=== PATIENT | female | born 1945 | race Caucasian/White ===

== ENCOUNTER 2016-06-25 17:01 | Observation (INO) | payer OTHER ==
[~2016-06-25] VITALS: Ht 177.8 cm; Wt 138.6 kg
[~2016-06-25 17:01] MED LIST: AMBIEN10 MG PO; AMBIEN5 M1 PO; ASPIRIN325 MG PO; BACTRIM,SEPT1 TABLET PO; BUPROPION HCL150 M2 PO; CELEBREX200 MG PO; COUMADIN10 MG PO; COUMADIN5 MG PO; COUMADIN7.5 MG PO; DIOVAN40 MG PO; DITROPAN XL10 MG PO; Ecotrin PO; FLUOXETINE HCL40 MG PO; Feosol PO; GLIPIZIDE ER2.5 M1 PO; GLIPIZIDE XL10 MG PO; GLUCOTROL XL10 MG PO; Glucotrol PO; IBUPROFEN800 MG PO; KEFLEX500 MG PO; LAMICTAL200 MG PO; LEXAPRO10 MG PO; LOPRESSOR25 MG PO; LOPRESSOR50 MG PO; LYRICA75 MG PO; METFORMIN HCL1000 MG PO; METOPROLOL SUC100 MG PO; MOTRIN800 MG PO; NIZORAL SHAMPO120 ML TP; NORCO 5/3251 TABLET PO; PRAVACHOL20 MG PO; PREVACID30 MG PO; PROAIR HFA8.5 GM IH; PROTONIX40 MG PO; PROZAC40 MG PO; SENOKOT S,PE1 TABLET PO; TOPAMAX25 MG PO; TOPAMAX50 MG PO; TYLENOL WITH C1 EACH PO; VESICARE5 MG PO; VICODIN 5-3001 EACH PO; VICODIN,LORT1 TABLET PO; Vicodin,Norco 5/325 PO; Vitamin B-12 PO; Vitamin D PO; WARFARIN SODIUM1 MG PO; WELLBUTRIN SR150 MG PO; WELLBUTRIN100 MG PO; ZANTAC150 MG PO; ZOFRAN4 MG PO; ZOLPIDEM TARTRA10 MG PO; Zantac,Taladine PO
[2016-06-25 17:59] LABS: HEMATOCRIT 39.7 % (36.0-46.0); MCH 28.2 PG (29.0-34.0); MCHC 31.5 G/DL (30.0-36.0); MCV 89.4 FL (83-99); MEAN PLAT.VOLUME 11.4 uM^3 (9.5-12.4); PLATELET COUNT 144 K/uL (156-360); RBC DIS.WIDTH-CV 14.1 % (11.8-14.6); RBC DIS.WIDTH-SD 46.3 % (39-53); RED BLOOD COUNT 4.44 M/uL (3.80-5.20); WHITE BLOOD COUNT 4.4 K/uL (4.1-10.2)
[2016-06-25 18:09] LABS: CHLORIDE 111 mEq/L (99-109); SODIUM 143 mEq/L (136-147)
[2016-06-25 18:10] LABS: GLUCOSE 85 mg/dL (70-99)
[2016-06-25 18:12] LABS: ANION GAP 7 MEQ/L (2-14)
[2016-06-25 18:14] LABS: GFR ESTIMATE (CALCULATED) 58 mL/min/
[2016-06-25 18:15] LABS: UREA NITROGEN (BUN) 19 mg/dL (9-23)
[2016-06-25 18:22] LABS: TROP-I INTERPRETATION NEGATIVE; TROPONIN-I < 0.01 ng/mL (0.0-0.30)
[2016-06-25] MEDS ORDERED: ADVAIR 500/501 DISK IH (19:18)
[2016-06-25] MEDS ORDERED: ABILIFY5 MG PO (19:19)
[2016-06-25] MEDS ORDERED: WELLBUTRIN SR150 MG PO (19:20)
[2016-06-25] MEDS ORDERED: LOTRISONE15 GM TP (19:21)
[2016-06-25] MEDS ORDERED: ELIQUIS5 MG PO (19:21)
[2016-06-25] MEDS ORDERED: FUROSEMIDE20 MG PO (19:22)
[2016-06-25] MEDS ORDERED: LYRICA150 MG PO (19:23)
[2016-06-25] MEDS ORDERED: MECLIZINE HCL25 MG PO (19:24)
[2016-06-25] MEDS ORDERED: NYSTATIN-TRIAMC15 GM TP (19:25)
[2016-06-25] MEDS ORDERED: PRAVACHOL80 MG PO (19:26)
[2016-06-25 21:15] VITALS: BP 131/61
[2016-06-26] VITALS: BP 130/68
[2016-06-26 01:13] LABS: TROP-I INTERPRETATION NEGATIVE; TROPONIN-I < 0.01 ng/mL (0.0-0.30)
[2016-06-26 03:58] VITALS: BP 112/60
[2016-06-26 08:09] LABS: POINT-OF-CARE METER ID UU14162513
[2016-06-26 08:22] VITALS: BP 132/70
[2016-06-26 08:48] LABS: TROP-I INTERPRETATION NEGATIVE; TROPONIN-I 0.01 ng/mL (0.0-0.30)
[2016-06-26 09:47] LABS: D-DIMER ELISA 0.21 mg/L FEU (< 0.57)
[2016-06-26] MEDS ORDERED: NITROSTAT0.4 MG SL (10:24)
== END 2016-06-26 11:53 | disposition home or self-care (01) ==
LOC: EME 17:01 → EDOF 20:25 → 5WEST 20:25 → EDOF 20:25 → 5WEST 21:01
PROVIDERS: Emergency Medicine; Family Medicine; Hospitalist; Nurse Practitioner Adult Health
DX: R07.89 Other chest pain (principal); I48.91 Unspecified atrial fibrillation; I10 Essential (primary) hypertension; E11.9 Type 2 diabetes mellitus without complications; G47.33 Obstructive sleep apnea (adult) (pediatric); F31.9 Bipolar disorder, unspecified; Z86.73 Personal history of transient ischemic attack (TIA), and cerebral infarction without residual deficits
CPT/HCPCS: 71020; 80048; 82948; 83880; 84484; 85027; 85379; 93005; 94640; 94640 76; 99202; 99281; 99284; G0378

== ENCOUNTER 2016-07-02 12:16 | Emergency (ER) | payer OTHER ==
[~2016-07-02] VITALS: Ht 175.3 cm; Wt 138.6 kg
[~2016-07-02 12:16] MED LIST changes: +ABILIFY5 MG PO; +ADVAIR 500/501 DISK IH; +ELIQUIS5 MG PO; +FUROSEMIDE20 MG PO; +LOTRISONE15 GM TP; +LYRICA150 MG PO; +MECLIZINE HCL25 MG PO; +NITROSTAT0.4 MG SL; +NYSTATIN-TRIAMC15 GM TP; +PRAVACHOL80 MG PO
[2016-07-02 13:53] VITALS: BP 154/67
== END 2016-07-02 13:53 | disposition home or self-care (01) ==
LOC: EME 12:16
DX: S80.02XA Contusion of left knee, initial encounter (principal); W18.39XA Other fall on same level, initial encounter; E11.9 Type 2 diabetes mellitus without complications; Z96.653 Presence of artificial knee joint, bilateral
CPT/HCPCS: 73564; 99281; 99284

== ENCOUNTER 2016-12-31 12:04 | Inpatient (IN) | payer OTHER ==
[~2016-12-31] VITALS: Ht 177.8 cm; Wt 140.3 kg
[2016-12-31 12:39] LABS: HEMATOCRIT 39.4 % (36.0-46.0); MCH 28.2 PG (29.0-34.0); MCHC 31.5 G/DL (30.0-36.0); MCV 89.7 FL (83-99); MEAN PLAT.VOLUME 10.9 uM^3 (9.5-12.4); PLATELET COUNT 179 K/uL (156-360); RBC DIS.WIDTH-SD 45.8 % (39-53); RED BLOOD COUNT 4.39 M/uL (3.80-5.20); WHITE BLOOD COUNT 5.8 K/uL (4.1-10.2)
[2016-12-31 12:50] LABS: CHLORIDE 108 mEq/L (99-109); POTASSIUM 4.5 mEq/L (3.7-5.4); SODIUM 141 mEq/L (136-147)
[2016-12-31 12:52] LABS: GLUCOSE 93 mg/dL (70-99)
[2016-12-31 12:53] LABS: ANION GAP 9 MEQ/L (2-14)
[2016-12-31 12:55] LABS: GFR ESTIMATE (CALCULATED) 52 mL/min/; SERUM ETHYL ALCOHOL < 10 mg/dL
[2016-12-31 12:56] LABS: UREA NITROGEN (BUN) 19 mg/dL (9-23)
[2016-12-31 14:10] LABS: ADD MIUA? NO; BILIRUBIN NEGATIVE; BLOOD NEGATIVE; COLOR STRAW ((YELLOW)); GLUCOSE (STRIP) NEGATIVE; KETONES NEGATIVE; LEUKOCYTES NEGATIVE; NITRITE NEGATIVE; PROTEIN (STRIP) NEGATIVE; SPECIFIC GRAVITY 1.006 (1.000-1.030); UCUL ADDED? NO; UROBILINOGEN 0.2 MG/DL (0.2-1.0)
[2016-12-31 14:36] LABS: AMPHETAMINE NEGATIVE (500 ng/mL); BARBITURATES NEGATIVE (200 ng/mL); BENZODIAZEPINES NEGATIVE (150 ng/mL); COCAINE NEGATIVE (150 ng/mL); INTERNAL CONTROLS VALID? YES; METHADONE NEGATIVE (200 ng/mL); METHAMPHETAMINE NEGATIVE (500 ng/mL); OPIATES (MORPHINE) NEGATIVE (100 ng/mL); OXYCODONE NEGATIVE (100 ng/mL); PHENCYCLIDINE NEGATIVE (25 ng/mL); PROPOXYPHENE NEGATIVE (300 ng/mL); THC CANNABINOIDS NEGATIVE (50 ng/mL); TRICYCLIC ANTIDEPRESSANTS NEGATIVE (300 ng/mL)
[2016-12-31] MEDS ORDERED: ARIPIPRAZOLE10 MG PO (15:21)
[2016-12-31] MEDS ORDERED: TRAMADOL HCL50 MG PO (15:31)
[2016-12-31 16:23] VITALS: BP 129/52
[2017-01-01 07:57] VITALS: BP 133/58
[2017-01-01 16:00] VITALS: BP 112/57
[2017-01-01 21:13] VITALS: BP 142/65
[2017-01-02 07:45] VITALS: BP 104/64
[2017-01-02 15:43] VITALS: BP 153/65
[2017-01-03 07:56] VITALS: BP 138/64
== END 2017-01-03 13:54 | disposition home or self-care (01) | DRG 885 ==
LOC: EME 12:04 → EDOF 14:47 → 1WEST 14:47 → ENRESERV 16:04 → 1WEST 16:11
PROVIDERS: Emergency Medicine
DX: F31.81 Bipolar II disorder (principal); R45.851 Suicidal ideations; I48.92 Unspecified atrial flutter; Z68.41 Body mass index [BMI] 40.0-44.9, adult; I48.91 Unspecified atrial fibrillation; Z85.3 Personal history of malignant neoplasm of breast; I10 Essential (primary) hypertension; E78.5 Hyperlipidemia, unspecified; E11.40 Type 2 diabetes mellitus with diabetic neuropathy, unspecified; Z96.653 Presence of artificial knee joint, bilateral; F60.9 Personality disorder, unspecified; E66.01 Morbid (severe) obesity due to excess calories; K21.9 Gastro-esophageal reflux disease without esophagitis; Z91.5 Personal history of self-harm; Z87.442 Personal history of urinary calculi; Z86.73 Personal history of transient ischemic attack (TIA), and cerebral infarction without residual deficits; J45.909 Unspecified asthma, uncomplicated
CPT/HCPCS: 80048; 81003; 85027; 90839; 99202; 99281; 99285; G0480

== ENCOUNTER → 2017-04-19 | Outpatient (CLI) | payer OTHER ==
[~2017-04-19] MED LIST changes: +ARIPIPRAZOLE10 MG PO; +TRAMADOL HCL50 MG PO
== END | disposition home or self-care (01) ==
LOC: AMB 12:54
PROC: 0HB6XZX Excision of Back Skin, External Approach, Diagnostic (ICD-10-PCS; principal; 2017-04-19)
DX: L57.0 Actinic keratosis (principal)
CPT/HCPCS: 88305

== ENCOUNTER 2017-11-11 12:07 | Observation (INO) | payer OTHER ==
[~2017-11-11] VITALS: Ht 180.3 cm; Wt 148.0 kg
[~2017-11-11 12:07] MED LIST changes: -ARIPIPRAZOLE10 MG PO; +ARIPIPRAZOLE15 MG PO; +PROZAC20 MG PO; -PROZAC40 MG PO
[2017-11-11 12:42] LABS: BASOPHIL COUNT 0.1 K/uL (0-0.1); EOSINOPHIL (%) 3.7 % (0-5); EOSINOPHIL COUNT 0.2 K/uL (0-0.3); HEMATOCRIT 37.4 % (36.0-46.0); IMMATURE GRANULOCYTE (%) 0.2 % (0.0-0.7); LYMPHOCYTE (%) 35.4 % (15-42); LYMPHOCYTE COUNT 2.1 K/uL (1.0-2.8); MCH 28.5 PG (29.0-34.0); MCHC 32.1 G/DL (30.0-36.0); MCV 88.8 FL (83-99); MONOCYTE (%) 7.6 % (3-12); MONOCYTE COUNT 0.5 K/uL (0-0.8); NEUTROPHIL (%) 52.1 % (45-76); NEUTROPHIL COUNT 3.1 K/uL (1.8-6.4); PLATELET COUNT 171 K/uL (156-360); RBC DIS.WIDTH-CV 14.2 % (11.8-14.6); RED BLOOD COUNT 4.21 M/uL (3.80-5.20); WHITE BLOOD COUNT 5.9 K/uL (4.1-10.2)
[2017-11-11 12:49] LABS: INTER. NORMALIZED RATIO 1.4
[2017-11-11 12:52] LABS: PTT 34.4 SEC (25-37)
[2017-11-11 12:54] LABS: AMYLASE 24 IU/L (1-118); CHLORIDE 106 mEq/L (99-109); POTASSIUM 4.6 mEq/L (3.7-5.4); SODIUM 141 mEq/L (136-147)
[2017-11-11 12:55] LABS: GLUCOSE 77 mg/dL (70-99)
[2017-11-11 12:59] LABS: CREATININE 1.2 mg/dL (0.6-1.3); GFR ESTIMATE (CALCULATED) 47 mL/min/; SERUM ETHYL ALCOHOL < 10 mg/dL
[2017-11-11 13:00] LABS: UREA NITROGEN (BUN) 23 mg/dL (9-23)
[2017-11-11 13:02] LABS: LIPASE 12 U/L (1.0-51.0)
[2017-11-11 13:05] LABS: TROP-I INTERPRETATION NEGATIVE; TROPONIN-I < 0.01 ng/mL (0.0-0.30)
[2017-11-11 14:25] LABS: AMPHETAMINE NEGATIVE (500 ng/mL); BARBITURATES NEGATIVE (200 ng/mL); BENZODIAZEPINES NEGATIVE (150 ng/mL); COCAINE NEGATIVE (150 ng/mL); METHADONE NEGATIVE (200 ng/mL); METHAMPHETAMINE NEGATIVE (500 ng/mL); OPIATES (MORPHINE) NEGATIVE (100 ng/mL); OXYCODONE NEGATIVE (100 ng/mL); PHENCYCLIDINE NEGATIVE (25 ng/mL); PROPOXYPHENE NEGATIVE (300 ng/mL); THC CANNABINOIDS NEGATIVE (50 ng/mL); TRICYCLIC ANTIDEPRESSANTS NEGATIVE (300 ng/mL)
[2017-11-11 14:26] LABS: BUPRENORPHINE NEGATIVE (10 ng/mL)
[2017-11-11 14:59] LABS: APPEARANCE CLEAR ((CLEAR)); BILIRUBIN NEGATIVE; BLOOD NEGATIVE; COLOR STRAW ((YELLOW)); GLUCOSE (STRIP) NEGATIVE; KETONES NEGATIVE; LEUKOCYTES TRACE; NITRITE NEGATIVE; PROTEIN (STRIP) NEGATIVE; SPECIFIC GRAVITY 1.024 (1.000-1.030); UROBILINOGEN 0.2 MG/DL (0.2-1.0)
[2017-11-11 15:06] LABS: BACTERIA NONE SEEN /HPF; EPITHELIAL CELLS 1+ /HPF; MUCUS TRACE /LPF; RED BLOOD CELLS 0-5 /HPF (0-5); UCUL ADDED? NO; WHITE BLOOD CELLS 0-5 /HPF (0-5)
[2017-11-11 17:05] LABS: HDL CHOLESTEROL 42 MG/DL (Desirable>=50); LDL CHOLESTEROL 80 mg/dL (Desirable<100); NON-HDL CHOLESTEROL 99 mg/dL (Desirable<160); TOTAL CHOLESTEROL 141 mg/dL (Desirable<200); TRIGLYCERIDES 97 MG/DL (Normal: <150)
[2017-11-11 17:15] VITALS: BP 125/91
[2017-11-11 19:35] VITALS: BP 103/80
[2017-11-12 00:53] VITALS: BP 110/65
[2017-11-12 03:57] VITALS: BP 98/57
[2017-11-12 05:33] VITALS: BP 114/55
[2017-11-12 05:45] LABS: HEMATOCRIT 34.8 % (36.0-46.0); HEMOGLOBIN 10.9 G/DL (11.9-15.5); MCH 28.5 PG (29.0-34.0); MCHC 31.3 G/DL (30.0-36.0); MCV 90.9 FL (83-99); PLATELET COUNT 146 K/uL (156-360); RBC DIS.WIDTH-CV 14.3 % (11.8-14.6); RBC DIS.WIDTH-SD 47.3 % (39-53); RED BLOOD COUNT 3.83 M/uL (3.80-5.20); WHITE BLOOD COUNT 5.5 K/uL (4.1-10.2)
[2017-11-12 06:06] LABS: CHLORIDE 107 MEQ/L (99-109); CREATININE 1.1 MG/DL (0.6-1.3); GFR ESTIMATE (CALCULATED) 52 mL/min/; GLUCOSE 91 mg/dL (70-99); POTASSIUM 4.3 MEQ/L (3.7-5.4); SODIUM 143 MEQ/L (136-147); UREA NITROGEN (BUN) 22 mg/dL (9-23)
[2017-11-12 07:43] VITALS: BP 127/70
[2017-11-12] MEDS ORDERED: ASPIR-LOW81 MG PO (08:15)
[2017-11-12 10:00] LABS: HEMOGLOBIN A1c (GLYCOHEMOGLOB) 5.5 % (Below 5.7)
== END 2017-11-12 15:15 | disposition home or self-care (01) ==
LOC: EME 12:07 → 5SOUTH 15:14 → EDOF 15:14 → 5SOUTH 15:14 → ENRESERV 15:16 → 5SOUTH 16:56 → ENPENDDIS 11-12 14:11 → 5SOUTH 11-12 15:15
PROVIDERS: Emergency Medicine; Hospitalist
DX: R47.81 Slurred speech (principal); R42 Dizziness and giddiness; I10 Essential (primary) hypertension; E11.51 Type 2 diabetes mellitus with diabetic peripheral angiopathy without gangrene; E78.5 Hyperlipidemia, unspecified; Z86.73 Personal history of transient ischemic attack (TIA), and cerebral infarction without residual deficits; Z79.01 Long term (current) use of anticoagulants; Z79.82 Long term (current) use of aspirin; I48.2 Chronic atrial fibrillation; Z90.49 Acquired absence of other specified parts of digestive tract; Z96.653 Presence of artificial knee joint, bilateral; Z98.890 Other specified postprocedural states; Z79.84 Long term (current) use of oral hypoglycemic drugs; Z85.3 Personal history of malignant neoplasm of breast
CPT/HCPCS: 70450; 70496; 70498; 70551; 80047; 80048; 80061; 81003; 82150; 82948; 83036; 83690; 84484; 85025; 85027; 85610; 85730; 86850; 86870; 86900; 86901; 86905; 86920; 92523 GN; 92610 GN; 93005; 94640; 94799; 99281; 99285; G0378; G0480; G8987 GO CM; G8988 GO CL; J1815